=== PATIENT | female | born 1975 | race Caucasian/White ===

== ENCOUNTER 2018-06-23 11:08 | Outpatient (CLI) | payer BC ==
[2018-06-23] VITALS (8 sets, daily range): BP systolic 118–130; BP diastolic 60–68; PULSE 55–86
[~2018-06-23] VITALS: Ht 157.5 cm; Wt 104.0 kg
[~2018-06-23 11:08] MED LIST: CLARITIN 1010 MG/TAB PO; DESYREL 50MG50 MG PO; FERRATE325 MG PO; KLOR-CON 1010 MEQ PO; KLOR-CON M2020 MEQ PO; LANTUS100 U/ML SC; NEURONTIN300 MG/CAP PO; NOVOLOG 100U100 U/M1 SC; PRINIVIL40 MG PO; TENORMIN 2525 MG/TAB PO; TIAZAC240 MG PO; VITAMIN D2000 I1 PO; XANAX 0.5MG0.5 MG PO; ZESTRIL 5MG5 MG PO; ZOLOFT 100MG100 MG PO; [UNRECOGNIZED DRUG - OTHER] PO
[2018-06-23 11:41] LABS: HEMATOCRIT 39.6 % (37.0-47.0); HEMOGLOBIN 13.3 g/dl (12.5-16.0); MEAN CELL VOLUME 98 fl (80.0-100.0); MEAN CORPUSCULAR HEMOGLOBIN 33 pg (27.0-31.0); MEAN CORPUSCULAR HGB CONC 34 g/dl (33.0-37.0); MEAN PLATELET VOLUME 9.8 fl (7.4-10.4); PLATELET COUNT 142 K/mm3 (130-400); RED BLOOD COUNT 4.03 M/mm3 (4.10-5.30); REDCELL DISTRIBUTION WIDTH-CV 14.5 % (11.5-14.5)
[2018-06-23 11:55] LABS: CALCIUM 10.1 mg/dL (8.4-10.2); CREATININE, serum 0.89 (0.52-1.25); POTASSIUM 4.7 mmol/L (3.4-5.0)
[2018-06-23 11:56] LABS: INR 1.3 (0.8-3.0); PROTHROMBIN TIME 14.8 SECONDS (9.7-12.8)
[2018-06-23] MEDS ORDERED: PROTONIX 40MG T40 MG PO (12:14)
[2018-06-23] MEDS ORDERED: LASIX 80MG TABL80 MG PO (12:15)
[2018-06-23] MEDS ORDERED: ALDACTONE 100M100 MG PO (12:15)
[2018-06-23] MEDS ORDERED: LACTULOSE10 GM/153 PO (12:16)
[2018-06-23] MEDS ORDERED: ZANAFLEX CAPSULE2 MG PO (12:17)
--- NOTE | 2018-06-23 14:17 | NUR ---
IV discontinued intact. VSS. Discharge instructions given.
--- NOTE | 2018-06-23 14:30 | NUR ---
Transferred to private car by solomon
== END 2018-06-23 14:30 | disposition home or self-care (01) ==
LOC: COL.RAD 11:08
PROVIDERS: Internal Medicine Cardiovascular Disease
DX: I27.20 Pulmonary hypertension, unspecified (principal); I34.2 Nonrheumatic mitral (valve) stenosis; I35.0 Nonrheumatic aortic (valve) stenosis
CPT/HCPCS: J2704; J7030

== ENCOUNTER 2020-02-13 14:59 | Emergency (ER) | payer BC ==
[~2020-02-13] VITALS: Ht 157.6 cm; Wt 109.1 kg
[~2020-02-13 14:59] MED LIST changes: +ALDACTONE 100M100 MG PO; +LACTULOSE10 GM/153 PO; -LANTUS100 U/ML SC; +LANTUS100 U/ML SQ; +LASIX 80MG TABL80 MG PO; +PROTONIX 40MG T40 MG PO; +ZANAFLEX CAPSULE2 MG PO
[2020-02-13 15:23] LABS: BASO # 0.1 (0.0-0.2); BASO % 0.2 % (0.0-2.0); EOS % 0.2 % (0-4.0); GRAN # 18.7 (1.4-6.5); GRAN % 86.3 % (42.2-75.2); LYMPH # 1.6 (1.2-3.4); LYMPH % 7.6 % (20.0-51.0); MEAN CELL VOLUME 104 fl (80.0-100.0); MEAN CORPUSCULAR HGB CONC 28 g/dl (33.0-37.0); MONO # 1.1 (0.1-0.6); MONO % 4.9 % (1.7-9.3); PLATELET COUNT 186 K/mm3 (130-400); RED BLOOD COUNT 2.04 M/mm3 (4.10-5.30); REDCELL DISTRIBUTION WIDTH-CV 18.9 % (11.5-14.5)
[2020-02-13 15:24] LABS: INR 3.1 (0.8-3.0); PROTHROMBIN TIME 35.3 SECONDS (9.7-12.8)
[2020-02-13 15:26] LABS: HEMATOCRIT 21.3 % (37.0-47.0); HEMOGLOBIN 5.9 g/dl (12.5-16.0); MEAN CORPUSCULAR HEMOGLOBIN 29 pg (27.0-31.0)
[2020-02-13 15:34] LABS: ALBUMIN 2.3 gm/dL (3.5-5.0); BILIRUBIN,TOTAL 5.3 mg/dL (0.0-1.0); C-REACTIVE PROTEIN 2.6 mg/dL (0.0-0.9); CALCIUM 8.7 mg/dL (8.4-10.2); CREATININE, serum 5.53 (0.52-1.25); TOTAL PROTEIN 5.2 gm/dL (6.4-8.2)
[2020-02-13 15:48] LABS: POTASSIUM 6.3 mmol/L (3.4-5.0); TROPONIN-I 0.733 ng/mL (0.000-0.035)
[2020-02-13 15:53] LABS: ARTERIAL BLD GAS O2 SATURATION 86.5 % (92-100); ARTERIAL BLD GAS TCO2 CT 10.6; ARTERIAL BLOOD GAS BASE EXCESS -15.9 (-2-2); ARTERIAL BLOOD GAS HCO3 9.9 meq/L (22-26); ARTERIAL BLOOD GAS PCO2 23.2 mmHg (35-45); ARTERIAL BLOOD GAS PO2 63.7 mmHg (80-100); ARTERIAL BLOOD GAS pH 7.25 (7.35-7.45)
[2020-02-13 18:02] VITALS: TEMP 97.4
[2020-02-13 18:04] VITALS: BP 121/84; PULSE 107
== END 2020-02-13 18:30 | disposition short-term general hospital (02) ==
LOC: COL.ER 14:59
PROVIDERS: Emergency Medicine
DX: S00.83XA Contusion of other part of head, initial encounter (principal); J18.9 Pneumonia, unspecified organism; A41.9 Sepsis, unspecified organism; D64.9 Anemia, unspecified; N19 Unspecified kidney failure; R17 Unspecified jaundice; L89.899 Pressure ulcer of other site, unspecified stage; E11.9 Type 2 diabetes mellitus without complications; F17.200 Nicotine dependence, unspecified, uncomplicated; Z79.4 Long term (current) use of insulin; Z20.828 Contact with and (suspected) exposure to other viral communicable diseases; X58.XXXA Exposure to other specified factors, initial encounter
CPT/HCPCS: J1815; J3010; J3370; J7030; J7050; J7060; P9016